=== PATIENT | female | born 1990 | race Caucasian/White ===

== ENCOUNTER 2017-10-05 13:33 | Emergency (ER) | payer OTHER ==
[2017-10-05] MEDS ORDERED: SODIUM CHLORIDE 0.9% 500 ML IV STA (13:45)
[2017-10-05] MEDS: NALOXONE 0.4 MG/ML 1 ML VIAL IV STA ×2 (13:56→15:29)
--- NOTE | 2017-10-05 13:56 | ED ---
General Adult HPI - General Stated complaint: poss overdose Time Seen by Provider: 10/05/17 13:40 Source: patient, EMS, RN notes reviewed, old records reviewed - History of Present Illness Initial comments: 27 yo female presenting with suspected overdose from [facility]. Patient states she took one tablet of Valium. She also took her 100 mg of methadone. Denies any other ingestion. Patient is lethargic and minimally responsive upon arrival. History obtained from EMS and minimal history from the patient. - Related Data Home Medications Medication Instructions Recorded Confirmed Gabapentin [Neurontin] 600 mg PO TID@0600,1530,2200 10/05/17 10/05/17 Venlafaxine HCl [Effexor XR] 225 mg PO DAILY@0600 10/05/17 10/05/17 metroNIDAZOLE [Flagyl] 500 mg PO TID@0600,1530,2200 10/05/17 10/05/17 Allergies Allergy/AdvReac Type Severity Reaction Status Date / Time sulfamethoxazole Allergy Unknown Verified 10/05/17 13:55 [From Bactrim] trimethoprim [From Bactrim] Allergy Unknown Verified 10/05/17 13:55 Review of Systems ROS Statement: Those systems with pertinent positive or pertinent negative responses have been documented in the HPI. ROS Other: All systems not noted in ROS Statement are negative. General Exam General appearance: lethargic Head exam: Present: atraumatic, normocephalic Eye exam: Absent: PERRL (Pupils are 2 mm and sluggish bilaterally) ENT exam: Present: normal exam Neck exam: Present: normal inspection. Absent: tenderness, meningismus Respiratory exam: Present: normal lung sounds bilaterally. Absent: respiratory distress, wheezes Cardiovascular Exam: Present: regular rate, normal rhythm GI/Abdominal exam: Present: soft. Absent: distended, tenderness, guarding Extremities exam: Present: normal inspection, normal capillary refill. Absent: pedal edema Neurological exam: Present: alert, oriented X3, CN II-XII intact. Absent: motor sensory deficit Psychiatric exam: Present: flat affect. Absent: suicidal ideation Skin exam: Present: warm, dry, intact. Absent: cyanosis, diaphoretic Course Vital Signs 10/05/17 10/05/17 10/05/17 13:40 13:56 14:25 Temperature 97.9 F Pulse Rate 64 100 Respiratory 14 14 14 Rate Blood Pressure 108/59 106/58 O2 Sat by Pulse 93 L 94 L Oximetry 10/05/17 10/05/17 15:29 19:15 Temperature 97.8 F Pulse Rate 64 Respiratory 14 16 Rate Blood Pressure 109/64 O2 Sat by Pulse 95 Oximetry - Reevaluation(s) Reevaluation #1: 10/05/17 15:17 Patient is petitioned by her mother. Reevaluation #2: 10/05/17 21:18 On reevaluation, patient is alert and oriented. EKG Findings - EKG Comments: EKG Findings:: EKG: Normal sinus rhythm, rate of 66, ND interval 172, QRS duration 88, QTC 476, QTC 499 Medical Decision Making - Medical Decision Making Patient is evaluated by EPS, she is medically cleared from a psychiatric standpoint. She is stable for discharge although she cannot be discharged to [facility]. Attempt is made to find patient a prison to stay at. As she is homeless. This is unsuccessful. Patient's mother lobo pick her up from the emergency department however she is unable until approximately 4 AM. Patient will be discharged to the care of her mother. - Lab Data Result diagrams: 10/05/17 13:51 10/05/17 13:51 Lab Results 10/05/17 10/05/17 10/05/17 Range/Units 13:51 13:51 13:51 WBC 8.9 (3.8-10.6) k/uL RBC 4.22 (3.80-5.40) m/uL Hgb 13.0 (11.4-16.0) gm/dL Hct 38.9 (34.0-46.0) % MCV 92.1 (80.0-100.0) fL MCH 30.8 (25.0-35.0) pg MCHC 33.4 (31.0-37.0) g/dL RDW 12.5 (11.5-15.5) % Plt Count 283 (150-450) k/uL Neutrophils % 49 % Lymphocytes % 35 % Monocytes % 6 % Eosinophils % 7 % Basophils % 1 % Neutrophils # 4.3 (1.3-7.7) k/uL Lymphocytes # 3.1 (1.0-4.8) k/uL Monocytes # 0.6 (0-1.0) k/uL Eosinophils # 0.6 (0-0.7) k/uL Basophils # 0.1 (0-0.2) k/uL PT 10.1 (9.0-12.0) sec INR 1.0 (<1.2) Sodium 140 (137-145) mmol/L Potassium 4.7 (3.5-5.1) mmol/L Chloride 105 (98-107) mmol/L Carbon Dioxide 27 (22-30) mmol/L Anion Gap 8 mmol/L BUN 14 (7-17) mg/dL Creatinine 0.83 (0.52-1.04) mg/dL Est GFR (CKD-EPI)AfAm >90 (>60 ml/min/1.73 sqM) Est GFR (CKD-EPI)NonAf >90 (>60 ml/min/1.73 sqM) Glucose 86 (74-99) mg/dL Calcium 9.1 (8.4-10.2) mg/dL Total Bilirubin 0.6 (0.2-1.3) mg/dL AST 32 (14-36) U/L ALT 33 (9-52) U/L Alkaline Phosphatase 68 (38-126) U/L Total Protein 7.1 (6.3-8.2) g/dL Albumin 4.1 (3.5-5.0) g/dL Urine Color Urine Appearance (Clear) Urine pH (5.0-8.0) Ur Specific Anita (1.001-1.035) Urine Protein (Negative) Urine Glucose (UA) (Negative) Urine Ketones (Negative) Urine Blood (Negative) Urine Nitrite (Negative) Urine Bilirubin (Negative) Urine Urobilinogen (<2.0) mg/dL Ur Leukocyte Esterase (Negative) Urine RBC (0-5) /hpf Urine WBC (0-5) /hpf Ur Squamous Epith Cells (0-4) /hpf Urine Mucus (None) /hpf Urine HCG, Qual (Not Detectd) Salicylates <1.0 mg/dL Urine Opiates Screen (NotDetected) Ur Oxycodone Screen (NotDetected) Urine Methadone Screen (NotDetected) Ur Propoxyphene Screen (NotDetected) Acetaminophen <10.0 ug/mL Ur Barbiturates Screen (NotDetected) U Tricyclic Antidepress (NotDetected) Ur Phencyclidine Scrn (NotDetected) Ur Amphetamines Screen (NotDetected) U Methamphetamines Scrn (NotDetected) U Benzodiazepines Scrn (NotDetected) Urine Cocaine Screen (NotDetected) U Marijuana (THC) Screen (NotDetected) Serum Alcohol <10 mg/dL 10/05/17 10/05/17 Range/Units 16:09 16:22 WBC (3.8-10.6) k/uL RBC (3.80-5.40) m/uL Hgb (11.4-16.0) gm/dL Hct (34.0-46.0) % MCV (80.0-100.0) fL MCH (25.0-35.0) pg MCHC (31.0-37.0) g/dL RDW (11.5-15.5) % Plt Count (150-450) k/uL Neutrophils % % Lymphocytes % % Monocytes % % Eosinophils % % Basophils % % Neutrophils # (1.3-7.7) k/uL Lymphocytes # (1.0-4.8) k/uL Monocytes # (0-1.0) k/uL Eosinophils # (0-0.7) k/uL Basophils # (0-0.2) k/uL PT (9.0-12.0) sec INR (<1.2) Sodium (137-145) mmol/L Potassium (3.5-5.1) mmol/L Chloride (98-107) mmol/L Carbon Dioxide (22-30) mmol/L Anion Gap mmol/L BUN (7-17) mg/dL Creatinine (0.52-1.04) mg/dL Est GFR (CKD-EPI)AfAm (>60 ml/min/1.73 sqM) Est GFR (CKD-EPI)NonAf (>60 ml/min/1.73 sqM) Glucose (74-99) mg/dL Calcium (8.4-10.2) mg/dL Total Bilirubin (0.2-1.3) mg/dL AST (14-36) U/L ALT (9-52) U/L Alkaline Phosphatase (38-126) U/L Total Protein (6.3-8.2) g/dL Albumin (3.5-5.0) g/dL Urine Color Light Red Urine Appearance Cloudy H (Clear) Urine pH 7.0 (5.0-8.0) Ur Specific Anita 1.013 (1.001-1.035) Urine Protein Negative (Negative) Urine Glucose (UA) Negative (Negative) Urine Ketones Negative (Negative) Urine Blood Negative (Negative) Urine Nitrite Negative (Negative) Urine Bilirubin Negative (Negative) Urine Urobilinogen 4.0 (<2.0) mg/dL Ur Leukocyte Esterase Small H (Negative) Urine RBC 2 (0-5) /hpf Urine WBC 3 (0-5) /hpf Ur Squamous Epith Cells 21 H (0-4) /hpf Urine Mucus Rare H (None) /hpf Urine HCG, Qual Not Detected (Not Detectd) Salicylates mg/dL Urine Opiates Screen Detected H (NotDetected) Ur Oxycodone Screen Not Detected (NotDetected) Urine Methadone Screen Detected H (NotDetected) Ur Propoxyphene Screen Not Detected (NotDetected) Acetaminophen ug/mL Ur Barbiturates Screen Not Detected (NotDetected) U Tricyclic Antidepress Not Detected (NotDetected) Ur Phencyclidine Scrn Not Detected (NotDetected) Ur Amphetamines Screen Not Detected (NotDetected) U Methamphetamines Scrn Not Detected (NotDetected) U Benzodiazepines Scrn Detected H (NotDetected) Urine Cocaine Screen Detected H (NotDetected) U Marijuana (THC) Screen Detected H (NotDetected) Serum Alcohol mg/dL Disposition Clinical Impression: Drug overdose Disposition: HOME SELF-CARE Condition: Fair Instructions: Adult Overdose (ED) Additional Instructions: Please follow up with community mental health, return with worsening or changing symptoms. Is patient prescribed a controlled substance at d/c from ED?: No Referrals: None,Stated [Primary Care Provider] - 1-2 days Time of Disposition: 21:19
[2017-10-05 14:11] LABS: Basophils # (A) 0.1 k/uL (0-0.2); Basophils % (A) 1 %; Eosinophils # (A) 0.6 k/uL (0-0.7); Eosinophils % (A) 7 %; HCT 38.9 % (34.0-46.0); Lymphocytes # (A) 3.1 k/uL (1.0-4.8); Lymphocytes % (A) 35 %; MCH 30.8 pg (25.0-35.0); MCHC 33.4 g/dL (31.0-37.0); MCV 92.1 fL (80.0-100.0); Mean Platelet Volume 7.2; Monocytes # (A) 0.6 k/uL (0-1.0); Monocytes % (A) 6 %; Neutrophils # (A) 4.3 k/uL (1.3-7.7); Neutrophils % (A) 49 %; Platelet Count 283 k/uL (150-450); RBC 4.22 m/uL (3.80-5.40); RDW 12.5 % (11.5-15.5); WBC 8.9 k/uL (3.8-10.6)
[2017-10-05 14:16] LABS: Prothrombin Time 10.1 sec (9.0-12.0)
[2017-10-05 14:24] LABS: ALT 33 U/L (9-52); AST 32 U/L (14-36); Acetaminophen <10.0 ug/mL; Albumin 4.1 g/dL (3.5-5.0); Alcohol <10 mg/dL; Alkaline Phosphatase 68 U/L (38-126); Anion Gap 8 mmol/L; Blood Urea Nitrogen 14 mg/dL (7-17); Calcium 9.1 mg/dL (8.4-10.2); Carbon Dioxide 27 mmol/L (22-30); Chloride 105 mmol/L (98-107); Glucose 86 mg/dL (74-99); Potassium 4.7 mmol/L (3.5-5.1); Salicylate <1.0 mg/dL; Sodium 140 mmol/L (137-145); Total Bilirubin 0.6 mg/dL (0.2-1.3); Total Protein 7.1 g/dL (6.3-8.2)
[2017-10-05 16:34] LABS: Appearance,Urine Cloudy (Clear); Bilirubin,Urine Negative (Negative); Blood,Urine Negative (Negative); Color,Urine Light Red; Glucose,Urine (UA) Negative (Negative); Ketones,Urine Negative (Negative); Leukocyte Esterase,Urine Small (Negative); Mucus,Urine Rare /hpf; Nitrite,Urine Negative (Negative); Protein,Urine Negative (Negative); RBC,Urine 2 /hpf (0-5); Specific Gravity,Urine 1.013 (1.001-1.035); Squamous Epithelial Cell,Urine 21 /hpf (0-4); WBC,Urine 3 /hpf (0-5)
[2017-10-05 16:40] LABS: Amphetamine Screen,Urine Not Detected (NotDetected); Barbiturate Screen,Urine Not Detected (NotDetected); Benzodiazepines Screen,Urine Detected (NotDetected); Cocaine Screen,Urine Detected (NotDetected); Methadone Screen, Urine Detected (NotDetected); Opiate Screen,Urine Detected (NotDetected); Oxycodone Screen, Urine Not Detected (NotDetected); Phencyclidine Screen,Urine Not Detected (NotDetected); Tricyclic Antidepressant,Urine Not Detected (NotDetected); Urn Cannabinoid Scrn Detected (NotDetected)
[2017-10-06 06:39] VITALS: BP 117/64; PULSE 54; RESP 18; TEMP 97.6
== END 2017-10-06 07:19 | disposition home or self-care (01) ==
LOC: EC 13:33
DX: T42.4X1A Poisoning by benzodiazepines, accidental (unintentional), initial encounter (principal); T40.3X1A Poisoning by methadone, accidental (unintentional), initial encounter; R53.83 Other fatigue; Z59.0 Homelessness; Z79.899 Other long term (current) drug therapy; Z88.2 Allergy status to sulfonamides
CPT/HCPCS: 82075; 36415; 93005; 80053; 85025; 85610; 81001; 81025; 80306; 83520 ×2; 80320; 99284; 96374; 96361 ×11; J2310